=== PATIENT | male | born 1965 | race Caucasian/White ===

== ENCOUNTER → 2017-05-17 | Outpatient (CLI) | payer BC, OTHER ==
--- NOTE | 2017-05-17 18:45 | REP ---
Lumbar spine five views: There are no comparisons. There is mild scoliosis convex right, possibly positional. Vertebral body heights and alignment are normal. Schmorl's nodes are incidentally noted in the inferior endplate of L1, superior endplate of L2, inferior endplate of L2 and superior endplate of L3. There is no spondylolysis or spondylolisthesis. The pedicles and facets are unremarkable. There is degenerative disc disease at L1-2, 07/06 and 08/04. Impression: Multilevel degenerative disc disease. Mild scoliosis. Schmorl's nodes. Signed by Enio Charles MD 05/17/2017 06:37 P
== END ==
LOC: M ADAMS 14:05
PROVIDERS: ATTEND Physician Assistant Medical
DX: M51.36 Other intervertebral disc degeneration, lumbar region (principal); M41.9 Scoliosis, unspecified; M51.46 Schmorl's nodes, lumbar region

== ENCOUNTER 2017-11-19 10:46 | Day surgery (SDC) | payer BC, OTHER ==
[2017-11-19] MEDS ORDERED: NS 1,000 ML IV (11:00)
[2017-11-19] MEDS ORDERED: PROPOFOL 200 MG/20 ML VIAL As Ordered ×3 (12:15→12:39)
== END 2017-11-19 13:20 | disposition home or self-care (01) ==
LOC: M OPP 10:46
DX: Z12.11 Encounter for screening for malignant neoplasm of colon (principal); Z86.010 Personal history of colon polyps; I10 Essential (primary) hypertension; K21.9 Gastro-esophageal reflux disease without esophagitis; K42.9 Umbilical hernia without obstruction or gangrene; Z79.899 Other long term (current) drug therapy
CPT/HCPCS: G0105

== ENCOUNTER → 2019-01-31 | Outpatient (CLI) | payer BC, OTHER ==
[~2019-01-31] MED LIST: BENAZEPRIL/HCTZ PO
--- NOTE | 2019-02-04 23:13 | SLEEPCENT ---
DATE OF PROCEDURE: 01/31/2019 Ordered by: MIMI Rodriguez Nocturnal polysomnography was performed for evaluation of sleep physiology in this patient with a history of snoring. 8 hours and 8 minutes of data were reviewed. There were 396 minutes of sleep identified. Sleep latency was normal at 16.5 minutes. REM latency was delayed at 148 minutes. Sleep architecture was fair with three REM cycles. Overall sleep efficiency was 81.9%. The patient's electrocardiogram showed a sinus rhythm with an average heart rate of 60 beats per minute. EEG showed normal waveforms for awake and sleep stages. There were 96 respiratory events identified of 10 seconds in duration or greater for an apnea-hypopnea index of 14.5. The events were primarily obstructive, not exclusive to sleep stage nor body posture. Arousals from respiratory events occurred 10.3 times per hour and oxygen desaturations were seen below 90%. There was some limb activity as well. Limb movement arousal index of 8.5. IMPRESSION Obstructive sleep apnea syndrome (G47.33). Apnea-hypopnea index 14.5. RECOMMENDATIONS The patient should be encouraged to undergo formal sleep evaluation and in laboratory pressure titration. In the interim alcohol and sedative avoidance should be practiced and caution exercised during the operation of motor vehicles.
== END ==
LOC: M SLEEP 20:00
PROVIDERS: ATTEND Physician Assistant
DX: G47.33 Obstructive sleep apnea (adult) (pediatric) (principal)

== ENCOUNTER → 2019-07-26 | Outpatient (CLI) | payer BC, OTHER | LOC: M SLEEP 20:00 | PROVIDERS: ATTEND Physician Assistant | DX: G47.33 Obstructive sleep apnea (adult) (pediatric) (principal) ==

== ENCOUNTER → 2020-08-08 | Outpatient (CLI) | payer BC, OTHER ==
--- NOTE | 2020-08-08 13:31 | REP ---
INDICATION: UNKNOWN COMPARISON: None. TECHNIQUE: Four views left foot. FINDINGS: There is no evidence of acute fracture, dislocation, or intrinsic bone disease.There is very mild narrowing of the 1st metatarsophalangeal joint. There is an accessory ossicle along the medial aspect of the navicular bone. IMPRESSION: No fracture or dislocation. Very mild degenerative changes 1st metatarsophalangeal joint. <Electronically signed by Enio Tang > 08/08/20 [id number]
== END ==
LOC: M ADAMS 13:06
PROVIDERS: ATTEND Registered Nurse
DX: M79.672 Pain in left foot (principal)

== ENCOUNTER → 2021-01-05 | Outpatient (CLI) | payer BC, OTHER | LOC: M LABSMTC 09:46 | PROVIDERS: ATTEND Anesthesiology | DX: Z01.812 Encounter for preprocedural laboratory examination (principal); Z20.822 Contact with and (suspected) exposure to COVID-19 ==

== ENCOUNTER → 2021-01-05 | Outpatient (CLI) | payer BC, OTHER ==
--- NOTE | 2021-01-05 12:13 | ECGEPIP ---
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
== END ==
LOC: M EKG 09:13
PROVIDERS: ATTEND Anesthesiology
DX: Z01.818 Encounter for other preprocedural examination (principal); Z20.822 Contact with and (suspected) exposure to COVID-19

== ENCOUNTER → 2021-01-14 | Outpatient (CLI) | payer BC, OTHER | LOC: M LABSMTC 10:24 | PROVIDERS: ATTEND Anesthesiology | DX: Z01.818 Encounter for other preprocedural examination (principal); Z11.52 Encounter for screening for COVID-19 ==

== ENCOUNTER 2021-01-19 12:52 | Day surgery (SDC) | payer BC, OTHER ==
[~2021-01-19] VITALS: Ht 185.4 cm; Wt 100.2 kg
[~2021-01-19 12:52] MED LIST changes: +LR 1,000 ML IV ONE
[2021-01-19] MEDS ORDERED: propofoL 200 MG/20 ML VIAL As Ordered ONE (13:15)
[2021-01-19] MEDS ORDERED: dexameTHASONE 4 MG/ML 1ML VIAL (J1100 PER 1MG) As Ordered ONE (13:15)
[2021-01-19] MEDS ORDERED: LIDOCAINE 2% 100MG/5ML SDV (FOR ANES.) As Ordered ONE (13:15)
[2021-01-19] MEDS ORDERED: ROCURONIUM BROMIDE 50 MG/5 ML VIAL As Ordered ONE (13:15)
[2021-01-19] MEDS ORDERED: ONDANSETRON 4MG/2ML VIAL As Ordered ONE (13:15)
[2021-01-19] MEDS ORDERED: LACRILUBE (AKWA TEARS) OPHTH OINT 3.5 GM As Ordered ONE (13:18)
[2021-01-19] MEDS ORDERED: fentaNYL 250 MCG/5 ML INJECTION (J3010) As Ordered ONE (13:19)
[2021-01-19] MEDS ORDERED: MIDAZOLAM INJ 2MG/2ML VIAL (J2250 PER 1MG) As Ordered ONE (13:20)
[2021-01-19] MEDS ORDERED: BUPIVACAINE HCL 0.25% 30ML VIAL As Ordered ONE ×2 (15:00→15:01)
[2021-01-19] MEDS ORDERED: ACETAMINOPHEN 1000MG 100ML IV BTL (OFIRMEV) (J0131 PER 10MG) As Ordered ONE (15:38)
[2021-01-19] MEDS ORDERED: KETOROLAC 60MG 2ML VIAL As Ordered ONE (15:51)
[2021-01-19] MEDS ORDERED: SUGAMMADEX SODIUM 500 MG/5 ML VIAL (BRIDION) As Ordered ONE (15:51)
[2021-01-19] MEDS ORDERED: fentaNYL 100 MCG/2 ML INJECTION (J3010) As Ordered ONE (17:30)
[2021-01-19] MEDS: fentaNYL 100 MCG/2 ML INJECTION (J3010) IV PRN ×2 (17:32→17:46)
[2021-01-19] MEDS ORDERED: LR 1,000 ML IV SCH (17:45)
[2021-01-19] MEDS ORDERED: oxyCODONE 5MG TAB PO PRN (17:45)
[2021-01-19] MEDS ORDERED: ONDANSETRON 4MG/2ML VIAL IV PRN (17:45)
[2021-01-19] MEDS ORDERED: NORCO, ANEXSIA 5/325MG TABLET (HYDROcodone/ACETAMINOPHEN) PO PRN (18:10)
[2021-01-19] MEDS ORDERED: ACETAMINOPHEN TAB 650MG DOSE (2X325MG) PO PRN (18:10)
[2021-01-19] MEDS ORDERED: IBUPROFEN 600MG TAB PO PRN (18:10)
[2021-01-19 19:25] VITALS: BP 153/86
--- NOTE | 2021-01-24 07:25 | RO ---
OPERATIVE NOTE DATE OF OPERATION: 01/19/2021 PREOPERATIVE DIAGNOSIS: Incarcerated umbilical hernia. POSTOPERATIVE DIAGNOSIS: Incarcerated umbilical hernia. PROCEDURE PERFORMED: Robotic-assisted laparoscopic repair of incarcerated umbilical hernia with Parietex mesh. The mesh utilized was a Covidien Parietex 9 cm, round mesh. Reference code PC09X, lot number [id number]. SURGEON: Aryan Hoyt MD TANK ERECTOR: None. ANESTHESIA: General. INDICATIONS FOR THE PROCEDURE: The patient is a 55-year-old man with a long history of a small bulge at the umbilicus which is occasionally uncomfortable. Examination confirmed an incarcerated umbilical hernia. He is now for repair of same. OPERATIVE PROCEDURE: The patient was brought to the operating room and placed on the table in a supine position. He was placed under general endotracheal anesthesia. The patient's abdomen was prepped and draped in a sterile fashion. 0.25% Marcaine was infiltrated at each of the trocar sites as needed. A short transverse incision was made in the left upper quadrant and the Veress needle was inserted. After a positive hanging drop test, the abdomen was inflated with carbon dioxide gas. An 8-mm robotic port was placed over the scope and advanced through the abdominal wall without difficulty. Initial examination showed normal-appearing liver. There was some omentum identified adherent into his umbilical hernia. There were no other adhesions of significance. A portion of the stomach was noted in the left upper quadrant and appeared normal. A second 8-mm port was placed at about the left mid abdomen laterally and a third port was placed in the left lower quadrant. The patient was tilted to a slight Trendelenburg position and was rolled slightly to the right. The patient cart of the da Win Xi robot was brought into position and the endoscope arm was docked to the middle port. Targeting took place on the umbilical hernia. The additional robotic arms were docked and the fenestrated bipolar grasper and a cauterizing scissor were then inserted. I then moved to the control console to proceed with the operation. Initially, the omentum was reduced from within the hernia by dividing some filmy adhesions that prevented reduction. I then created a peritoneal flap, incising the peritoneum 4-5 cm lateral from the midline on the left and peeling the peritoneum and overlying preperitoneal fat off of the fascia. The hernia sac was inverted into the abdomen with the peritoneal flap. The fascial defect appeared to be approximately 2 cm in maximal diameter. The dissection of the peritoneal flap was carried approximately 4-5 cm to the right of the midline. The intraabdominal pressure was reduced to 10 mmHg and the fascial defect was closed with a longitudinal midline running suture of 1-0 STRATAFIX. A 9-cm round Parietex patch was then selected. This was then trimmed to create a 7-cm diameter round patch. This was inserted into the abdomen and placed in the preperitoneal space with the adherent side facing the abdominal wall. This was then sutured across the transverse midline with a 2-0 V-Loc suture. The remainder of the suture was used to continue part of the circumferential suturing of the patch. A second suture placed a longitudinal midline suture and completed the circumferential suturing. A third 2-0 V-Loc was used to close the peritoneal flap. The completed repair looked excellent with no significant peritoneal defects. The robotic instruments were removed. The robot was undocked and the patient cart withdrawn. I returned to the patient's side. The abdomen was deflated and the trocars were removed. The trocar sites were all closed with buried suture of 4-0 Vicryl. Steri-Strips and light dressings were applied. The patient tolerated the procedure well without apparent complication. He was awakened in the operating room, extubated, and moved to the recovery room in stable condition.
== END 2021-01-19 19:30 | disposition home or self-care (01) ==
LOC: M SDC 12:52
PROVIDERS: ATTEND Surgery
DX: K42.0 Umbilical hernia with obstruction, without gangrene (principal); I10 Essential (primary) hypertension; G47.33 Obstructive sleep apnea (adult) (pediatric); K21.9 Gastro-esophageal reflux disease without esophagitis; Z87.891 Personal history of nicotine dependence; Z79.899 Other long term (current) drug therapy
CPT/HCPCS: 49653; C1781; J0131; J1100; J1885; J2250; J2405; J3010; S2900

== ENCOUNTER 2021-06-23 13:58 | Emergency (ER) | payer BC, OTHER ==
[~2021-06-23] VITALS: Ht 185.4 cm; Wt 100.0 kg
[~2021-06-23 13:58] MED LIST changes: -LR 1,000 ML IV ONE
[2021-06-23] MEDS ORDERED: ASPIRIN 81 MG CHEW TABLET PO ONE (14:20)
[2021-06-23] MEDS ORDERED: GI COCKTAIL 50ML BTL(HYOSCYAMINE/MAALOX/LIDOCAINE VISCOUS)(1:3:1) PO ONE (14:20)
[2021-06-23] MEDS ORDERED: SILD100T (14:33)
[2021-06-23] MEDS ORDERED: TAMS1CAP17 PO (14:33)
[2021-06-23] MEDS ORDERED: APAP325T4 PO (14:33)
[2021-06-23 14:52] LABS: BASO # 0.1 10^3/uL (0.0-0.2); BASO % 0.5 % (0.0-1.0); EOS # 0.1 10^3/uL (0.0-0.5); EOS % 0.8 % (0.0-3.0); HEMATOCRIT 45.7 % (42.0-52.0); HEMOGLOBIN 15.3 g/dl (13.5-17.5); LYMPH # 1.1 10^3/uL (1.5-5.0); MEAN CORPUSCULAR HEMOGLOBIN 30.7 pg (27.0-33.0); MEAN CORPUSCULAR HGB CONC 33.5 g/dl (32.0-36.5); MEAN CORPUSCULAR VOLUME 91.6 fl (80.0-96.0); MONO # 0.9 10^3/uL (0.0-0.8); MONO % 8.8 % (2.0-8.0); NEUTROPHILS % 78.5 % (36.0-66.0); PLATELET COUNT, AUTOMATED 244 10^3/uL (150-450); RED BLOOD COUNT 4.99 10^6/uL (4.30-6.10); WHITE BLOOD COUNT 10.2 10^3/uL (4.0-10.0)
[2021-06-23 15:14] LABS: CK-MB VALUE MASS 1.5 NG/ML (<3.6); MB/CK RELATIVE INDEX 0.69 (< OR =4)
[2021-06-23] MEDS ORDERED: MORPHINE 2 MG/ML 1ML VIAL (J2270) IV ONE (15:15)
[2021-06-23 15:23] LABS: ALT/SGPT 43 U/L (12-78); BILIRUBIN,DIRECT 0.2 MG/DL (0.0-0.2); BILIRUBIN,TOTAL 0.6 MG/DL (0.2-1.0); BLOOD UREA NITROGEN 15 MG/DL (7-18); CARBON DIOXIDE LEVEL 29 MEQ/L (21-32); CHLORIDE LEVEL 99 MEQ/L (98-107); CREATININE FOR GFR 1.13 MG/DL (0.70-1.30); FREE T4 0.97 NG/DL (0.76-1.46); GLOMERULAR FILTRATION RATE > 60.0 (>56); GLUCOSE, FASTING 105 MG/DL (70-100); LIPASE 68 U/L (73-393); NT-PRO BNP 36 PG/ML (<125); POTASSIUM SERUM 4.3 MEQ/L (3.5-5.1); SODIUM LEVEL 133 MEQ/L (136-145); TOTAL PROTEIN 7.8 GM/DL (6.4-8.2)
[2021-06-23] MEDS ORDERED: ISOVUE-370 76% 100ML VIAL As Ordered ONE (15:24)
[2021-06-23] MEDS ORDERED: PANTOPRAZOLE 40MG VIAL (C9113 PER 1) IV ONE (16:20)
[2021-06-23] MEDS ORDERED: SUCRALFATE SUSP 1GM/10ML UD PO ONE (16:20)
[2021-06-23] MEDS ORDERED: SUCR1SS PO (16:50)
[2021-06-23] MEDS ORDERED: OMEP20.6 PO (16:50)
[2021-06-23 17:07] LABS: CK-MB VALUE MASS 1.4 NG/ML (<3.6); MB/CK RELATIVE INDEX 0.82 (< OR =4)
[2021-06-23 17:48] VITALS: BP 119/65
== END 2021-06-23 18:00 | disposition home or self-care (01) ==
LOC: M ED 13:58
DX: K44.9 Diaphragmatic hernia without obstruction or gangrene (principal); K21.9 Gastro-esophageal reflux disease without esophagitis; K76.89 Other specified diseases of liver; R91.1 Solitary pulmonary nodule; I10 Essential (primary) hypertension; Z82.49 Family history of ischemic heart disease and other diseases of the circulatory system
CPT/HCPCS: 36415; 71045; 71275; 76705; 80047; 80048; 80076; 82550; 82553; 83690; 83880; 84439; 84443; 84484; 85025; 93005; 93041; 94760; 96374; 96375; 99285; C9113; J2270; Q9967

== ENCOUNTER → 2021-11-06 | Outpatient (CLI) | payer BC, OTHER ==
[~2021-11-06] MED LIST changes: +APAP325T4 PO; +OMEP20.6 PO; +PROHANCE 279.3MG/ML 15ML VIAL As Ordered ONE; +PROHANCE 279.3MG/ML 5ML VIAL As Ordered ONE; +SILD100T; +SUCR1SS PO; +TAMS1CAP17 PO
== END ==
LOC: M RAD 15:49
PROVIDERS: ATTEND Registered Nurse
DX: D37.6 Neoplasm of uncertain behavior of liver, gallbladder and bile ducts (principal)

== ENCOUNTER → 2022-07-04 | Outpatient (CLI) | payer BC, OTHER ==
[~2022-07-04] MED LIST changes: -PROHANCE 279.3MG/ML 15ML VIAL As Ordered ONE; -PROHANCE 279.3MG/ML 5ML VIAL As Ordered ONE
== END ==
LOC: M PLAIMG 12:34
PROVIDERS: ATTEND Registered Nurse
DX: R91.1 Solitary pulmonary nodule (principal)

== ENCOUNTER → 2023-09-02 | Outpatient (CLI) | payer BC, OTHER | LOC: M ADAMS 08:59 | PROVIDERS: ATTEND Physician Assistant Medical | DX: M25.531 Pain in right wrist (principal) ==

== ENCOUNTER 2024-07-29 09:12 | Day surgery (SDC) | payer BC ==
[~2024-07-29] VITALS: Ht 185.4 cm; Wt 103.1 kg
[~2024-07-29 09:12] MED LIST changes: +BENA1TAB32 PO; -SILD100T; +SILD100T PO
[2024-07-29] MEDS ORDERED: propofoL 200 MG/20 ML VIAL As Ordered ONE (11:03)
[2024-07-29] MEDS ORDERED: LIDOCAINE 2% 100MG/5ML SDV (FOR ANES.) As Ordered ONE (11:03)
[2024-07-29 11:20] VITALS: TEMP 96.7
[2024-07-29 12:40] VITALS: BP 125/61; O2SAT 97
== END 2024-07-29 12:45 | disposition home or self-care (01) ==
LOC: M OPP 09:12
PROVIDERS: ATTEND Surgery
DX: D12.5 Benign neoplasm of sigmoid colon (principal); D12.3 Benign neoplasm of transverse colon; K64.0 First degree hemorrhoids; Z86.0100 Personal history of colon polyps, unspecified; G47.30 Sleep apnea, unspecified; Z88.1 Allergy status to other antibiotic agents; Z88.8 Allergy status to other drugs, medicaments and biological substances; Z79.899 Other long term (current) drug therapy; Z87.891 Personal history of nicotine dependence